=== PATIENT | female | born 1955 | race Caucasian/White ===

== ENCOUNTER 2017-01-28 12:33 | Emergency (ER) | payer SELFPAY ==
--- NOTE | 2017-02-04 18:55 | ER ---
ADMIT: 01/28/2017 RM/LOC: ER [facility] MR#: [id number] [place], [place] [id number] ROSIE STOUT [address] [place] [address] Emergency Room Report SEX: F AGE: 61 : 1955 DATE: 01/28/2017 ADDENDUM: This patient comes into the ER because she has a swollen area right in the middle of her forehead and then she looked at her left leg and noticed a swollen bruised area on her calf. She has a history of having an aneurysm in her brain after noticing the swollen area on her forehead and the swelling behind her leg. She was concerned maybe she is going to have another aneurysm. She denies any injury to her leg and has no pain in her head. On physical exam, I do not notice any kind of raised or red area on her forehead. Her family say that it does look slightly swollen. She has no pain in that area and her sensation is intact. She does have a small hematoma with some pain in her left calf, but she does ambulate and move without any difficulty. She answers questions and speaks appropriately. Ultrasound was negative for DVT. DIAGNOSIS: Hematoma to the left calf. I did reassure the family and the patient that I did not think she was having a stroke especially since it was superficial on the skin. There were no signs of cellulitis, definitely could be an insect bite or maybe some irritation on the skin, but I do not even notice any redness. She is to follow up with her primary as needed. Please see my T-sheet. SEBASTIAN Howard / Isac Tello MD / jeanette JOB #: [id number] CC: Isac Tello MD, Attending Physician Edgardo Arriaza MD, Family Physician
== END 2017-01-28 14:50 | disposition home or self-care (01) ==
LOC: ER 12:33
DX: S80.12XA Contusion of left lower leg, initial encounter (principal); Z86.73 Personal history of transient ischemic attack (TIA), and cerebral infarction without residual deficits; Z98.890 Other specified postprocedural states; X58.XXXA Exposure to other specified factors, initial encounter